=== PATIENT | male | born 1970 | race Caucasian/White ===

== ENCOUNTER → 2023-11-18 | Outpatient (CLI) | payer OTHER ==
[~2023-11-18] MED LIST: PROT1TAB2 PO
== END ==
LOC: M PLARAD 12:29
PROVIDERS: ATTEND Otolaryngology
DX: D37.02 Neoplasm of uncertain behavior of tongue (principal)

== ENCOUNTER 2023-12-15 06:51 | Day surgery (SDC) | payer OTHER ==
[~2023-12-15] VITALS: Ht 190.5 cm; Wt 100.3 kg
[2023-12-15] MEDS ORDERED: propofoL 200 MG/20 ML VIAL As Ordered ONE (07:21)
[2023-12-15] MEDS: NS 1,000 ML IV ONE (07:27)
[2023-12-15 08:37] VITALS: TEMP 98.1
[2023-12-15 08:59] VITALS: BP 133/88; O2SAT 100
== END 2023-12-15 09:08 | disposition home or self-care (01) ==
LOC: M OPP 06:51
PROVIDERS: ATTEND Internal Medicine Gastroenterology
DX: Z12.11 Encounter for screening for malignant neoplasm of colon (principal); K21.00 Gastro-esophageal reflux disease with esophagitis, without bleeding; K44.9 Diaphragmatic hernia without obstruction or gangrene; K64.0 First degree hemorrhoids; K57.30 Diverticulosis of large intestine without perforation or abscess without bleeding; K22.89 Other specified disease of esophagus; Z86.010 Personal history of colon polyps; Z90.49 Acquired absence of other specified parts of digestive tract; Z79.899 Other long term (current) drug therapy

== ENCOUNTER 2024-01-28 10:11 | Day surgery (SDC) | payer OTHER ==
[~2024-01-28] VITALS: Ht 193 cm; Wt 99.3 kg
[~2024-01-28 10:11] MED LIST changes: +LIDOCAINE 2% 100MG/5ML SDV (FOR ANES.) As Ordered ONE; +OMEP-173 PO; +ROCURONIUM BROMIDE 50MG/5ML VIAL As Ordered ONE; +SUGAMMADEX SODIUM 500 MG/5 ML VIAL (BRIDION) As Ordered ONE; +fentaNYL 100 MCG/2 ML INJECTION As Ordered ONE
[2024-01-28] MEDS ORDERED: ACETAMINOPHEN 1000MG 100ML IV BAG As Ordered ONE (10:30)
[2024-01-28] MEDS ORDERED: LR 1,000 ML IV SCH ×2 (10:50→12:50)
[2024-01-28] MEDS ORDERED: propofoL 200 MG/20 ML VIAL As Ordered ONE (11:38)
[2024-01-28] MEDS: OXYMETAZOLINE 0.05% NASAL SPRAY (AFRIN) As Ordered ONE (12:00)
[2024-01-28] MEDS: LIDOCAINE W/EPINEPHRINE 1% 20ML VIAL As Ordered ONE (12:00)
[2024-01-28] MEDS ORDERED: ONDANSETRON 4MG 2ML VIAL IV PRN (12:45)
[2024-01-28] MEDS ORDERED: oxyCODONE 5MG TAB PO PRN (12:45)
[2024-01-28] MEDS ORDERED: fentaNYL 100 MCG/2 ML INJECTION IV PRN (12:45)
[2024-01-28 14:09] VITALS: BP 117/72; TEMP 97.8; O2SAT 100
== END 2024-01-28 14:27 | disposition home or self-care (01) ==
LOC: M SDC 10:11
PROVIDERS: ATTEND Otolaryngology
DX: K14.8 Other diseases of tongue (principal); F45.8 Other somatoform disorders; K21.9 Gastro-esophageal reflux disease without esophagitis; Z90.49 Acquired absence of other specified parts of digestive tract; E78.00 Pure hypercholesterolemia, unspecified; Z79.899 Other long term (current) drug therapy; G44.019 Episodic cluster headache, not intractable; Z87.891 Personal history of nicotine dependence
CPT/HCPCS: 31536; 88305; 93005; J0131; J3010